=== PATIENT | female | born 1955 | race Asian ===

== ENCOUNTER 2020-11-24 20:35 | Emergency (ER) | payer MEDICARE, OTHER ==
[~2020-11-24] VITALS: Ht 157.5 cm; Wt 60.5 kg
[2020-11-24 20:50] LABS: GLUCOSE,POINT OF CARE 171 MG/DL (70-110)
[2020-11-24] MEDS ORDERED: ATOR10TA84 PO (20:55)
[2020-11-24] MEDS ORDERED: ASPI-1450 PO (20:55)
[2020-11-24] MEDS ORDERED: METF-960 PO (21:03)
[2020-11-24] MEDS ORDERED: TRANEXAMIC ACID 1,000 MG/10 ML VIAL IVP ONE (22:30)
[2020-11-24 23:45] VITALS: BP 149/85
== END 2020-11-24 23:55 | disposition home or self-care (01) ==
LOC: EMS 20:35
DX: S01.512A Laceration without foreign body of oral cavity, initial encounter (principal); E11.9 Type 2 diabetes mellitus without complications; E78.00 Pure hypercholesterolemia, unspecified; I10 Essential (primary) hypertension; Z79.84 Long term (current) use of oral hypoglycemic drugs; Z79.82 Long term (current) use of aspirin; X58.XXXA Exposure to other specified factors, initial encounter; Y93.89 Activity, other specified; Y92.89 Other specified places as the place of occurrence of the external cause; Y99.8 Other external cause status
CPT/HCPCS: 82962; 99283; J3490; 96374